=== PATIENT | female | born 1970 | race Caucasian/White ===

== ENCOUNTER 2017-05-11 17:14 | Emergency (ER) | payer MEDICARE, SELFPAY ==
[2017-05-11 17:30] VITALS: BP 148/79
[2017-05-11] MEDS ORDERED: Lactated Ringers 1,000 ML IV ONE (17:49)
[2017-05-11] MEDS ORDERED: Sodium Chloride 0.9% 10 ML Syringe FLUSH PRN (17:50)
[2017-05-11] MEDS ORDERED: Prochlorperazine 10 MG/2 ML SDV IVPUSH ONE (17:50)
[2017-05-11] MEDS ORDERED: Ketorolac 30 MG/ML SDV IVPUSH ONE (17:50)
--- NOTE | 2017-05-11 17:54 | EDM.PDOC ---
ED HPI GENERAL MEDICAL PROBLEM - General Chief Complaint: Headache Stated Complaint: MIGRAINE Time Seen by Provider: 05/11/17 17:45 Source of Information: Reports: Patient, Family, RN Notes Reviewed History Limitations: Reports: No Limitations - History of Present Illness INITIAL COMMENTS - FREE TEXT/NARRATIVE: 46-year-old female presents emergency department today complaint of migraine headache, she has a known history of migraines she says this one is slightly different she has a bandlike around her head photophobia and nausea, no fever headac Pain Score (Numeric/FACES): 8 - Related Data Allergies Allergy/AdvReac Type Severity Reaction Status Date / Time acetaminophen [From Percocet] Allergy Itching Verified 05/11/17 17:31 hydrocodone [From Vicodin] Allergy Itching Verified 05/11/17 17:31 oxycodone HCl [From Percocet] Allergy Itching Verified 05/11/17 17:31 Home Meds: Home Meds Cholecalciferol (Vitamin D3) [Vitamin D] 2,000 unit PO DAILY 08/25/14 [History] Eletriptan HBr [Relpax] 20 mg PO DAILY PRN 08/25/14 [History] FLUoxetine HCl [Prozac] 40 mg PO DAILY 08/25/14 [History] Naproxen [Naprosyn] 500 mg PO Q12HR PRN 08/25/14 [History] Zolpidem Tartrate [Ambien] 5 mg PO BEDTIME PRN 08/25/14 [History] Zonisamide [Zonisamide] 50 mg PO DAILY 10/14/15 [History] LORazepam 2 mg PO Q8HR PRN 05/11/17 [History] OXcarbazepine [Trileptal] 300 mg PO DAILY 05/11/17 [History] Propranolol [Inderal] 20 mg PO DAILY 05/11/17 [History] Sertraline [Zoloft] 100 mg PO DAILY 05/11/17 [History] levETIRAcetam [Keppra] 1,000 mg PO BID 05/11/17 [History] levETIRAcetam [Keppra] 750 mg PO BID 05/11/17 [History] traZODone 100 mg PO BEDTIME 05/11/17 [History] Past Medical History Musculoskeletal History: Reports: Osteoarthritis Neurological History: Reports: Migraines, Seizure Other Neuro History: Patient diagnosed with seizures 3 to 4 years ago. Currently does not take seizure medication. Is seen by Dr. Clay Walton. Sees Dr. Demetrius Tracey Neurologist. Psychiatric History: Reports: Anxiety, Depression Dermatologic History: Reports: Eczema - Past Surgical History GI Surgical History: Reports: None Female Surgical History: Reports: Section Musculoskeletal Surgical History: Reports: None Social & Family History - Tobacco Use Smoking Status *Q: Never Smoker - Caffeine Use Caffeine Use: Reports: Coffee, Soda - Recreational Drug Use Recreational Drug Use: No Drug Use in Last 12 Months: Yes Recreational Drug Type: Reports: Marijuana/Hashish Recreational Drug Use Frequency: Weekly ED ROS GENERAL - Review of Systems Review Of Systems: See Below Constitutional: Denies: Fever, Chills HEENT: Reports: No Symptoms Respiratory: Reports: No Symptoms Cardiovascular: Reports: No Symptoms GI/Abdominal: Reports: Nausea. Denies: Vomiting : Reports: No Symptoms Neurological: Reports: Headache - Physical Exam Exam: See Below Exam Limited By: No Limitations General Appearance: Alert, Mild Distress Eye Exam: Bilateral Eye: Normal Fundi, Normal Inspection Respiratory/Chest: No Respiratory Distress Course - Vital Signs Last Recorded V/S: Last Vital Signs Temp 98.1 F 05/11/17 17:29 Pulse 57 L 05/11/17 17:29 Resp 16 05/11/17 17:29 BP 148/79 H 05/11/17 17:29 Pulse Ox 95 05/11/17 17:29 - Orders/Labs/Meds Orders: Active Orders 24 hr Category Date Time Status Peripheral IV Care [RC] . DIRECTED Care 05/11/17 17:50 Active Sodium Chloride 0.9% [Saline Flush] Med 05/11/17 17:50 Active 10 ml FLUSH ASDIRECTED PRN Peripheral IV Insertion Adult [OM.PC] Urgent Oth 05/11/17 17:50 Ordered Medication Orders Sodium Chloride (Saline Flush) 10 ml FLUSH ASDIRECTED PRN PRN Reason: Keep Vein Open Last Admin: 05/11/17 18:03 Dose: 10 ml Meds: Medications Generic Name Dose Route Start Last Admin Trade Name Freq PRN Reason Stop Dose Admin Sodium Chloride 10 ml 05/11/17 17:50 05/11/17 18:03 Saline Flush FLUSH 10 ml ASDIRECTED PRN Administration Keep Vein Open Discontinued Medications Generic Name Dose Route Start Last Admin Trade Name Lani PRN Reason Stop Dose Admin Lactated Ringer's 1,000 mls @ 999 mls/hr 05/11/17 17:49 05/11/17 18:03 Ringers, Lactated IV 05/11/17 18:49 999 mls/hr BOLUS ONE Administration Ketorolac Tromethamine 30 mg 05/11/17 17:50 05/11/17 18:03 Toradol IVPUSH 05/11/17 17:51 30 mg ONETIME ONE Administration Prochlorperazine Edisylate 5 mg 05/11/17 17:50 05/11/17 18:03 Compazine IVPUSH 05/11/17 17:51 5 mg ONETIME ONE Administration Departure - Departure Time of Disposition: 19:14 Disposition: Home, Self-Care 01 Condition: Good Clinical Impression: Migraine - Discharge Information Referrals: Clay Walton PA-C [Primary Care Provider] - Forms: ED Department Discharge Additional Instructions: Resume your regular medications, use Toradol as needed for pain control Please followup with your primary care provider in 3-5 days if not better, please call return to the emergency department with worsening of symptoms. - My Orders Last 24 Hours: My Active Orders 05/11/17 17:50 Peripheral IV Care [RC] . DIRECTED Sodium Chloride 0.9% [Saline Flush] 10 ml FLUSH ASDIRECTED PRN Peripheral IV Insertion Adult [OM.PC] Urgent - Assessment/Plan Last 24 Hours: My Active Orders 05/11/17 17:50 Peripheral IV Care [RC] . DIRECTED Sodium Chloride 0.9% [Saline Flush] 10 ml FLUSH ASDIRECTED PRN Peripheral IV Insertion Adult [OM.PC] Urgent Plan: Assessment Acuity = acute Site and laterality = migraine type headache Etiology = unclear etiology Manifestations = none Location of injury = Home Lab values = none Plan She had good improvement combination Toradol, 1 L LR, Compazine her headache was reduced by half she feels well enough to go home, will have her resume her regular medications follow-up with primary care 3-5 days if no improvement prescription written for ketorolac 10 mg 1 tab by mouth every 6 hours when necessary total #20. This note was dictated using [employer] voice recognition software please call with any questions on syntax or angela.
== END 2017-05-11 19:31 | disposition home or self-care (01) ==
LOC: JP.ED 17:14
DX: G43.909 Migraine, unspecified, not intractable, without status migrainosus (principal); Z88.6 Allergy status to analgesic agent; Z88.5 Allergy status to narcotic agent; Z79.899 Other long term (current) drug therapy
CPT/HCPCS: 96374; 96375; 99284; J0780; J1885; J7050; J7120